=== PATIENT | female | born 1970 | race Caucasian/White ===

== ENCOUNTER 2023-03-14 13:54 | Inpatient (IN) | payer MEDICAID, OTHER, SELFPAY ==
[2023-03-14] MEDS ORDERED: Ketorolac Tromethamine 30 MG/ML VIAL ONE (14:33)
[2023-03-14] MEDS ORDERED: cefTRIAXone (ROCEPHIN) 2 GM VIAL ONE (14:34)
[2023-03-14 14:52] LABS: #Basophils 0.1 10x3/uL (0.0-0.2); #Eosinphils 0.1 10x3/uL (0.0-0.5); #Monocytes 1.4 10x3/uL (0.0-1.1); #Neutrophils 14.2 10x3/uL (1.5-8.4); %Basophils 0.4 % (0.0-2.0); %Eosinophils 0.5 % (0.0-6.0); %Lymphocytes 16.2 % (18.0-47.0); %Monocytes 7.5 % (0.0-10.0); %Neutrophils 74.7 % (40.0-75.0); Hemoglobin 11.4 g/dL (12.0-15.5); Mean Corpuscular HGB CONC 33.1 g/dL (32.0-36.0); Mean Corpuscular Hemoglobin 30.9 pg (27.0-33.0); Mean Corpuscular Volume 93.2 fl (81.6-98.3); Mean Platelet Volume 9.5 fl (7.4-10.4); Platelet Count 368 10x3/uL (150-450); RBC Distribution Width 13.7 % (11.5-14.5); Red Blood Cell (RBC) Count 3.69 10x6/uL (3.90-5.03)
[2023-03-14 14:59] LABS: BHCG - Serum Negative (NEGATIVE); Pregs Control Background? CLEAR/WHITE (CLR/WHITE); Pregs Control Bar Appear? YES (CONTROL BAR)
[2023-03-14 15:07] LABS: ALT (SGPT) 19 U/L (8-55); AST (SGOT) 16 U/L (5-34); Alkaline Phosphatase 89 U/L (40-110); Anion Gap 19 mmol/L (10-20); BUN (Urea Nitrogen) 9 mg/dL (9.8-20.1); Bilirubin, Total 0.5 mg/dL (0.2-1.2); Calc. Creatinine Clearance 0 mL/min (70-130); Calcium 8.6 mg/dL (7.8-10.44); Carbon Dioxide 20 mmol/L (22-29); Chloride 106 mmol/L (98-107); Estimated GFR 98; Globulin 2.6 g/dL (2.4-3.5); Glucose 115 mg/dL (70-105); Potassium 3.5 mmol/L (3.5-5.1); Protein, Total 6.6 g/dL (6.0-8.3); Sodium 141 mmol/L (136-145)
[2023-03-14] MEDS ORDERED: Azithromycin 500 MG VIAL ONE (15:09)
[2023-03-14 15:15] LABS: SARS-CoV-2 NAA Rapid Test Not Detected (NotDetected)
[2023-03-14 15:50] LABS: Acetaminophen Less than 10.0 mcg/mL (10.0-30.0); Alcohol Less than 10 mg/dL (Less than 10); Salicylate Less than 8.0 mg/dL (15.0-30.0)
[2023-03-14] MEDS ORDERED: Ondansetron ODT 4 MG TAB PO PRN (16:11)
[2023-03-14] MEDS ORDERED: Ondansetron PF 4 MG/2 ML Vial IVP PRN (16:11)
[2023-03-14] MEDS ORDERED: Ipratropium/Albuterol 3 ML NEB NEB PRN (16:23)
[2023-03-14 17:39] LABS: Lactic Acid 1.4 mmol/L (0.5-2.2)
[2023-03-14 20:53] VITALS: BMI 20.9
[2023-03-14] MEDS ORDERED: Sodium Chloride 0.9% 1,000 ML IV SCH (21:00)
[2023-03-14] MEDS ORDERED: Nicotine 14 MG PATCH TD SCH (21:00)
[2023-03-15] MEDS: methylPREDNISolone Sod Succ 40 MG VIAL IVP SCH ×2 (01:00→05:36)
[2023-03-15 04:25] LABS: #Monocytes 0.4 10x3/uL (0.0-1.1); #Neutrophils 15.6 10x3/uL (1.5-8.4); %Basophils 0.1 % (0.0-2.0); %Lymphocytes 6.4 % (18.0-47.0); %Monocytes 2.1 % (0.0-10.0); Hemoglobin 11.4 g/dL (12.0-15.5); Mean Corpuscular HGB CONC 33.7 g/dL (32.0-36.0); Mean Corpuscular Hemoglobin 31.1 pg (27.0-33.0); Mean Corpuscular Volume 92.3 fl (81.6-98.3); Mean Platelet Volume 9.3 fl (7.4-10.4); Platelet Count 362 10x3/uL (150-450); RBC Distribution Width 13.8 % (11.5-14.5); Red Blood Cell (RBC) Count 3.66 10x6/uL (3.90-5.03); White Blood Cell (WBC) Count 17.3 10x3/uL (3.5-10.5)
[2023-03-15 04:39] LABS: Anion Gap 14 mmol/L (10-20); BUN (Urea Nitrogen) 14 mg/dL (9.8-20.1); Calc. Creatinine Clearance 108 mL/min (70-130); Calcium 8.9 mg/dL (7.8-10.44); Carbon Dioxide 21 mmol/L (22-29); Chloride 112 mmol/L (98-107); Estimated GFR 106; Glucose 129 mg/dL (70-105); Potassium 4.3 mmol/L (3.5-5.1); Sodium 143 mmol/L (136-145)
[2023-03-15] MEDS ORDERED: Nicotine 14 MG PATCH TD PRN (09:04)
[2023-03-15] MEDS: Guaifenesin DM 100-10/5 ML UDCUP PO PRN (10:12)
[2023-03-15] MEDS ORDERED: Ipratropium/Albuterol 3 ML NEB NEB SCH (10:30)
[2023-03-15] MEDS: Acetaminophen 325 MG TAB PO PRN (10:52)
[2023-03-15] MEDS ORDERED: Ipratropium/Albuterol 3 ML NEB NEB PRN (12:44)
[2023-03-15] MEDS: cefTRIAXone\\ROCEPHIN 1 GM in Sodium Chloride 0.9% 100 ML IVPB SCH (14:13)
[2023-03-15] MEDS: Ipratropium/Albuterol 3 ML NEB NEB SCH ×2 (14:23→18:58)
[2023-03-15 14:26] LABS: Legionella Urinary Ag Negative (Negative); Strep pneumo Urine Ag NEGATIVE (NEGATIVE)
[2023-03-15] MEDS: Azithromycin 500 MG in Sodium Chloride 0.9% 250 ML 250 ML IVPB SCH (15:57)
[2023-03-15] MEDS: Budesonide 0.5 MG/2 ML NEB NEB SCH (18:58)
[2023-03-15] MEDS ORDERED: guaiFENesin ER 600 MG TAB PO SCH (21:00)
[2023-03-15] MEDS: guaiFENesin ER 600 MG TAB PO SCH (21:36)
[2023-03-16] MEDS: Ipratropium/Albuterol 3 ML NEB NEB SCH ×4 (01:46→18:53)
[2023-03-16 05:26] LABS: Anion Gap 15 mmol/L (10-20); BUN (Urea Nitrogen) 14 mg/dL (9.8-20.1); Calc. Creatinine Clearance 97 mL/min (70-130); Calcium 8.5 mg/dL (7.8-10.44); Carbon Dioxide 20 mmol/L (22-29); Chloride 110 mmol/L (98-107); Estimated GFR 98; Glucose 91 mg/dL (70-105); Potassium 3.6 mmol/L (3.5-5.1); Sodium 141 mmol/L (136-145)
[2023-03-16 05:30] LABS: #Basophils 0.1 10x3/uL (0.0-0.2); #Monocytes 1.2 10x3/uL (0.0-1.1); #Neutrophils 13.4 10x3/uL (1.5-8.4); %Basophils 0.3 % (0.0-2.0); %Eosinophils 0.2 % (0.0-6.0); %Lymphocytes 23.6 % (18.0-47.0); %Monocytes 6.1 % (0.0-10.0); Hemoglobin 10.2 g/dL (12.0-15.5); Mean Corpuscular HGB CONC 33.4 g/dL (32.0-36.0); Mean Corpuscular Hemoglobin 31.1 pg (27.0-33.0); Mean Platelet Volume 9.8 fl (7.4-10.4); Platelet Count 387 10x3/uL (150-450); RBC Distribution Width 14.1 % (11.5-14.5); Red Blood Cell (RBC) Count 3.28 10x6/uL (3.90-5.03); White Blood Cell (WBC) Count 19.4 10x3/uL (3.5-10.5)
[2023-03-16] MEDS: Acetaminophen 325 MG TAB PO PRN (08:42)
[2023-03-16] MEDS: guaiFENesin ER 600 MG TAB PO SCH ×2 (08:43→22:33)
[2023-03-16] MEDS: Budesonide 0.5 MG/2 ML NEB NEB SCH ×2 (09:00→18:53)
[2023-03-16] MEDS ORDERED: HYDROcodone/Acetaminophen 5/325 mg Tablet PO PRN (09:33)
[2023-03-16] MEDS ORDERED: Polyethylene Glycol 3350 17 GM Packet PO PRN (09:34)
[2023-03-16] MEDS ORDERED: Senokot S 8.6-50 MG TAB PO SCH (10:00)
[2023-03-16] MEDS: Acetaminophen/Codeine 30-300mg Tablet PO PRN ×3 (10:14→22:41)
[2023-03-16] MEDS: cefTRIAXone\\ROCEPHIN 1 GM in Sodium Chloride 0.9% 100 ML IVPB SCH (14:04)
[2023-03-16] MEDS: Guaifenesin DM 100-10/5 ML UDCUP PO PRN (14:09)
[2023-03-16] MEDS: Azithromycin 500 MG in Sodium Chloride 0.9% 250 ML 250 ML IVPB SCH (15:17)
[2023-03-16] MEDS: Senokot S 8.6-50 MG TAB PO SCH (22:33)
[2023-03-17] MEDS: Ipratropium/Albuterol 3 ML NEB NEB SCH ×3 (01:21→13:30)
[2023-03-17] MEDS: Guaifenesin DM 100-10/5 ML UDCUP PO PRN (03:57)
[2023-03-17] MEDS: Acetaminophen/Codeine 30-300mg Tablet PO PRN (03:57)
[2023-03-17 06:06] LABS: #Basophils 0.1 10x3/uL (0.0-0.2); #Eosinphils 0.2 10x3/uL (0.0-0.5); #Monocytes 0.7 10x3/uL (0.0-1.1); #Neutrophils 5.2 10x3/uL (1.5-8.4); %Basophils 0.8 % (0.0-2.0); %Eosinophils 1.7 % (0.0-6.0); %Lymphocytes 38.6 % (18.0-47.0); %Monocytes 7.1 % (0.0-10.0); %Neutrophils 51.1 % (40.0-75.0); Hemoglobin 10.1 g/dL (12.0-15.5); Mean Corpuscular HGB CONC 32.8 g/dL (32.0-36.0); Mean Corpuscular Hemoglobin 30.7 pg (27.0-33.0); Mean Corpuscular Volume 93.6 fl (81.6-98.3); Mean Platelet Volume 9.2 fl (7.4-10.4); Platelet Count 385 10x3/uL (150-450); RBC Distribution Width 14.3 % (11.5-14.5); Red Blood Cell (RBC) Count 3.29 10x6/uL (3.90-5.03); White Blood Cell (WBC) Count 10.2 10x3/uL (3.5-10.5)
[2023-03-17 06:37] LABS: Anion Gap 14 mmol/L (10-20); BUN (Urea Nitrogen) 13 mg/dL (9.8-20.1); Calc. Creatinine Clearance 97 mL/min (70-130); Calcium 8.6 mg/dL (7.8-10.44); Carbon Dioxide 25 mmol/L (22-29); Chloride 108 mmol/L (98-107); Estimated GFR 98; Glucose 81 mg/dL (70-105); Magnesium 2.2 mg/dL (1.6-2.6); Potassium 3.8 mmol/L (3.5-5.1); Sodium 143 mmol/L (136-145)
[2023-03-17] MEDS: Budesonide 0.5 MG/2 ML NEB NEB SCH (07:30)
[2023-03-17] MEDS ORDERED: Loratadine 10 MG TAB PO SCH (09:00)
[2023-03-17] MEDS: guaiFENesin ER 600 MG TAB PO SCH (09:16)
[2023-03-17] MEDS: Senokot S 8.6-50 MG TAB PO SCH (09:17)
[2023-03-17] MEDS ORDERED: predniSONE 20 MG TAB PO SCH (09:45)
[2023-03-17] MEDS ORDERED: Azithromycin 250 MG TAB PO SCH (10:00)
[2023-03-17] MEDS ORDERED: cefTRIAXone\\ROCEPHIN 1 GM in Sodium Chloride 0.9% 100 ML IVPB SCH (10:00)
[2023-03-17 11:45] VITALS: BP 133/66; TEMP 98
[2023-03-18] MEDS ORDERED: predniSONE 20 MG TAB PO SCH (08:00)
== END 2023-03-17 14:05 | disposition home or self-care (01) | DRG 871 ==
LOC: CSHERS 13:54 → CSHTELE 17:59
PROVIDERS: ADMIT Internal Medicine; ATTEND Internal Medicine
DX: A41.50 Gram-negative sepsis, unspecified (principal); J15.6 Pneumonia due to other Gram-negative bacteria; E87.20 Acidosis, unspecified; F43.10 Post-traumatic stress disorder, unspecified; R65.20 Severe sepsis without septic shock; F32.A Depression, unspecified; F17.210 Nicotine dependence, cigarettes, uncomplicated; Z20.822 Contact with and (suspected) exposure to COVID-19; E87.6 Hypokalemia; D64.9 Anemia, unspecified; Z90.710 Acquired absence of both cervix and uterus; Z90.49 Acquired absence of other specified parts of digestive tract; Z98.51 Tubal ligation status; Z88.2 Allergy status to sulfonamides
CPT/HCPCS: 36415; 71045; 80048; 80053; 80307; 83605; 83735; 84145; 84703; 85025; 87040; 87449; 87899; 93005; 94640; 94760; 96361; 96365; 96366; 96367; 96375; J0456; J0696; J1650; J1885; J2920; J3490; J7050; J7620; J7626